=== PATIENT | female | born 1995 | race Caucasian/White ===

== ENCOUNTER 2022-04-17 16:14 | Emergency (ER) | payer SELFPAY ==
[~2022-04-17] VITALS: Ht 172.7 cm; Wt 90.7 kg
[2022-04-17] MEDS ORDERED: IBU600 MG PO (21:59)
[2022-04-17] MEDS ORDERED: DOXYCYCLINE HY100 MG PO (21:59)
[2022-04-17] MEDS ORDERED: TYLENOL EXTRA500 MG PO (21:59)
[2022-04-17] MEDS ORDERED: DICYCLOMINE HCL20 MG PO (21:59)
--- NOTE | 2022-04-20 08:55 | EKG ---
[facility] [address] [place], [place] [address] Signed Normal sinus rhythm Normal ECG No previous ECGs available Confirmed by VENKATESH MAO MD ([id number] on 04/20/2022 8:55:49 AM Electronically Signed By: VENKATESH MAO MD 04/20/22 0855 PATIENT NAME: MATTY BENEDICT Electrocardiogram DATE OF : [birth year] PHYSICIAN: VENKATESH MAO MD REPORT #: [id number] REPORT IS CONFIDENTIAL AND NOT TO BE RELEASED WITHOUT AUTHORIZATION
== END 2022-04-17 22:37 | disposition home or self-care (01) ==
LOC: ED 16:14
DX: R10.30 Lower abdominal pain, unspecified (principal)
CPT/HCPCS: 36415; 71046; 74177; 80053; 81001; 83690; 84484; 84703; 85025; 87210; 87491; 93005; 93010; 99284-25; J0696; J1885; Q9967